=== PATIENT | male | born 1990 | race Two or more races ===

== ENCOUNTER 2024-04-21 20:05 | Emergency (ER) | payer BC ==
[~2024-04-21] VITALS: Ht 177.8 cm; Wt 110.0 kg
[2024-04-21 20:29] VITALS: BP 151/90; PULSE 124; RESP 20; O2SAT 95
--- NOTE | 2024-04-21 21:06 | ED.PDOC ---
History of Present Illness(SKN HPI Comments PATIENT HERE TODAY FOR BLEEDING FROM A WOUND. PATIENT STATES HE HAD SURGERY TODAY TO REPAIR LIGAMENTS IN HIS LEFT ANKLE. STATES HE HAD A LACERATION/SUTURE VAZQUZE TO THE LATERAL SIDE OF THE ANKLE. SAYS HE WENT HOME FROM THE HOSPITAL, THIS HOSPITAL TODAY. SEEN BY PODIATRY. HE HAD DIGITAL BLOCK DONE SO HE DID NOT FEEL MUCH PAIN BUT HAS A DAY WENT ON PAIN STARTED DECREASE AND HE STARTED NOTICING BLEEDING THROUGH THE DRESSING ON HIS ANKLE. PATIENT STATES HE CHANGE THE SANJUANA WRAP AND THE SOCK HE WAS WEARING AND IT CONTINUED TO BLEED SO HE CAME IN TO HAVE THE WOUND CHECKED. Chief Complaint: Wound Check Time Seen by MD: 20:28 History of Present Illness: Nurses Notes Allergies: Coded Allergies: Vancomycin (Verified Allergy, Mild, Itchiness, 04/19/24) Information Source: Patient Mode of Arrival: crutches Severity: Moderate Past Medical History PAST MEDICAL HISTORY: Denies Surgical History: Denies all surgeries Constitutional: denies: chills, diaphoresis, fatigue, fever, malaise, sweats, weakness, others EENTM: denies: blurred vision, double vision, ear bleeding, ear discharge, ear drainage, ear pain, ear ringing, eye pain, eye redness, hearing loss, mouth pain, mouth swelling, nasal discharge, nose bleeding, nose congestion, nose pain, photophobia, tearing, throat pain, throat swelling, voice changes, others Respiratory: denies: cough, hemoptysis, orthopnea, SOB at rest, shortness of breath, SOB with excertion, stridor, wheezing, others Cardiovascular: denies: chest pain, dizzy spells, diaphoresis, Dyspnea on exertion, edema, irregular heart beat, left arm pain, lightheadedness, palpitations, PND, syncope, others Gastrointestinal: denies: abdomen distended, abdominal pain, blood streaked bowels, constipated, diarrhea, dysphagia, difficulty swallowing, hematemesis, melena, nausea, poor appetite, poor fluid intake, rectal bleeding, rectal pain, vomiting, others Genitourinary: denies: burning, dysuria, flank pain, frequency, hematuria, incontinence, penile discharge, penile sore, pain, testicle pain, testicle swelling, urgency, others Neurological: denies: dizziness, fainting, headache, left sided numbness, left sided weakness, numbness, paresthesia, pre-existing deficit, right sided numbness, right sided weakness, seizure, speech problems, tingling, tremors, weakness, others Musculoskeletal: reports: joint pain, muscle pain, muscle stiffness; denies: back pain, gout, joint swelling, neck pain, others Physical Exam General Appearance: No Apparent Distress, Normal HEENT: Normal ENT Inspection, Pharynx Normal, TMs Normal Neck: Full Range of Motion, Non-Tender, Normal, Normal Inspection Respiratory: Chest Non-Tender, Lungs Clear, No Accessory Muscle Use, No Respiratory Distress, Normal Breath Sounds Cardiovascular: No Edema, No JVD, No Murmur, No Gallop, Normal Peripheral Pulses, Regular Rate/Rhythm Breast Exam: Deferred Gastrointestinal: No Organomegaly, Non Tender, No Pulsatile Mass, Normal Bowel Sounds, Soft Genitalia: Deferred Pelvic: Deferred Rectal: Deferred Extremities: No calf tenderness, Normal capillary refill, Normal inspection, Normal range of motion, Non-tender, No pedal edema Musculoskeletal : Apperance: Normal Neurologic: Alert, machine packer II-XII nml as Tested, No Motor Deficits, Normal Affect, Normal Mood, No Sensory Deficits Cerebellar Function: Normal Reflexes: Normal Skin: Dry, Normal Color, Warm, Wounds (SUTURE WOUND ASSESS, HE HAS SUTURE LINE TO THE LEFT LATERAL MALLEOLUS. NO DRAINAGE FROM THE WOUND UPON ASSESSMENT. AREAS TENDER TO PALPATION. SUTURES ALL APPEAR TO BE INTACT, NO DEHISCENCE) Lymphatic: No Adenopathy Was a procedure done? Was a procedure done?: No Differential Diagnosis (INTG) Differential Diagnosis: Other (SURGICAL WOUND COMPLICATIONS. CELLULITIS.) X-Ray, Labs, Meds, VS Vital Signs Date Time Temp Pulse Resp B/P (MAP) Pulse Ox O2 Delivery O2 Flow Rate FiO2 04/21/24 20:29 98.6 124 20 151/90 (110) 95 X-Ray, Labs, Meds, VS Comment IMAGING: X-RAYS AND CT SCANS WERE REVIEWED AND INTERPRETED BY THIS PROVIDER, IMAGING SHOWS NO FRACTURES AND NO PATHOLOGICAL DISEASE. PENDING RADIOLOGY REVIEW. LABORATORY: LABS REVIEWED AND INTERPRETED BY THIS PROVIDER. NO SIGNIFICANT ABNORMALITIES NOTED. PATIENT HAS PRIOR MEDICAL VISITS REVIEWED. MED RECONCILIATION PERFORMED VITAL SIGNS REVIEWED Time of 1ST Reevaluation: 21:05 Reevaluation 1ST: Improved Patient Education/Counseling: Diagnosis, Treatment, Need For Follow Up (MAKE FOLLOW UP WITH CALL WITH PODIATRY TOMORROW MORNING. PATIENT STATES HE WAS PERCOCET AT HOME.) Family Education/Counseling: Diagnosis Departure 1 Departure Time of Disposition: 21:05 Impression: Primary Impression: Abnormal surgical wound Qualified Codes: T81.9XXA - Unspecified complication of procedure, initial encounter Disposition: HOME / SELF CARE / HOMELESS Condition: Fair Discharged With: Self Critical Care Note Critical Care Time?: No Stability Stability form required: No Heart Score Heart Score: Heart Score Response (Comments) Value History N/A 0 EKG N/A 0 Age N/A 0 Risk Factors N/A 0 Troponin N/A 0 Total 0 ANAMIKA MCNAMARAP Apr 21, 2024 21:06
== END 2024-04-21 21:48 | disposition left against medical advice (07) ==
LOC: ER 20:05
DX: S91.012D Laceration without foreign body, left ankle, subsequent encounter (principal); Z88.1 Allergy status to other antibiotic agents; X58.XXXD Exposure to other specified factors, subsequent encounter

== ENCOUNTER → 2024-04-21 | Day surgery (SDC) | payer BC ==
[2024-04-19 11:53] LABS: Urine Bacteria None Seen /hpf (None Seen)
[2024-04-19 12:03] LABS: Urine Blood Negative /uL (Negative); Urine Clarity Clear (Clear); Urine Color Light-Yellow (Yellow); Urine Protein, UAD Negative (Negative); Urine Specific Gravity 1.015 (1.001-1.035); Urine Urobilinogen Normal (Negative); Urine WBC <1 /hpf (0 - 3); Urine pH 7.5 (5.0-9.0)
[2024-04-19 12:10] LABS: Basophils # (auto) 0 10 ^3/uL (0-0.2); Basophils % (auto) 0.2 % (0.0-2.0); Eosinophils # (auto) 0.1 10 ^3/uL (0-0.8); Eosinophils % (auto) 1.8 % (0.0-7.0); Hematocrit 46.1 % (41.0-53.0); Hemoglobin 16.5 g/dL (13.5-17.5); Lymphocytes # (auto) 2.3 10 ^3/uL (0.4-5.4); Lymphocytes % (auto) 35.7 % (10.0-50.0); Mean Corpuscular Hemoglobin 31.3 pg (28.0-32.0); Mean Corpuscular Hgb Conc. 35.8 g/dL (32.0-36.0); Mean Corpuscular Volume 87.5 fL (80.0-100.0); Monocytes # (auto) 0.6 10 ^3/uL (0-1.3); Monocytes % (auto) 9.5 % (0.0-12.0); Neutrophils # (auto) 3.4 10 ^3/uL (1.6-8.6); Neutrophils % (auto) 52.8 % (37.0-80.0); Nucleated Red Blood Cells % 1.4 %; Platelet Count (auto) 206 10^3/uL (140-450); Red Blood Cells 5.27 10^6/uL (4.5-5.90); Red Cell Distribution Width 13.2 % (11.8-14.3); White Blood Cell 6.5 10^3/uL (4.4-10.8)
[2024-04-19 12:23] LABS: INR 1.03 (0.9-1.15); Partial Thromboplastin Time 27.6 SEC (24.5-34.5); Prothrombin Time 10.9 sec (9.3-11.8)
[2024-04-19 12:38] LABS: Alanine Aminotransferase 25 U/L (7-40); Albumin 4.7 g/dL (3.2-4.8); Alkaline Phosphatase 71 U/L (46-116); Anion Gap 4 (5-15); Aspartate Aminotransferase 12 U/L (13-40); BUN/Creatinine Ratio 12.5 (10.0-20.0); Bilirubin, Total 0.7 mg/dL (0.2-1.0); Blood Urea Nitrogen 11 mg/dL (9-23); Calcium 10.3 mg/dL (8.7-10.4); Carbon Dioxide 30 mmol/L (20-31); Chloride 104 mmol/L (98-107); Glucose 87 mg/dL (74-106); Potassium 4.2 mmol/L (3.5-5.1); Sodium 138 mmol/L (136-145); Total Protein 7.5 g/dL (5.7-8.2)
[~2024-04-21] VITALS: Ht 177.8 cm; Wt 111.1 kg
[~2024-04-21] MED LIST: ACETAMINOPHEN IV 1000 MG/100ML (10MG/ML) IV PRN; BACITRACIN TOP OINT 1 UD PKG TOP ONE; BUPIVACAINE HCL 50 ML ONE; DexAMETHasone SOD PHOS 10MG/1ML VIAL INJ ONE; HYDROmorphone HCL 2 MG/ML VL/or syr IV PRN; LIDOCAINE 1% INJ PF 5ML AMP ONE; MEPERIDINE HCL (25 MG/ML) 1ML VIAL IV PRN; ONDANSETRON HCL 4 MG/2 ML VIAL IV ONE; ONDANSETRON HCL 4 MG/2 ML VIAL ONE; PROPOFOL 10 MG/ML 20 ML IV ONE; ROPIVACAINE 0.5% (5MG/ML) 20ML AMPULE IJ ONE; fentaNYL CITRATE 100 MCG/2 ML VL ONE
[2024-04-21] MEDS: ceFAZolin 2 GM/D5W100ml 100 ML IV ONE (12:26)
[2024-04-21 13:43] VITALS: PULSE 84; RESP 16; TEMP 97.5; O2SAT 96
--- NOTE | 2024-04-21 13:43 | DVHOP2 ---
Operative Report - 2 Report Details Date: 04/21/24 Preop Diagnosis: 1. Left ankle instability 2. Left sprain of the ATFL 3. Left subtalar synovitis 4. Left ankle pain Postop Diagnosis: Same as preop Surgeon: Mehdi Stanley MD Anesthesiologist: See anesthesia Anesthesia: General Implant: Internal brace Arthrex FiberTak x2 Consent: The patient was informed of the risks and benefits of the procedure. These include but are not limited to complications of anesthesia, postoperative infection, incomplete relief of symptoms, recurrence of symptoms, damage to blood vessels, nerves and tendons, deep venous thrombosis, pulmonary embolism and possible need for repeat surgery in the future. Complications: None Estimated Blood Loss: Minimal Fluids: See anesthesia Findings: Significant laxity of the talus and calcaneus at the ATFL and CFL Indications for Surgery: Worsening left ankle pain Name of Procedure Performed 1. Left subtalar synovectomy (91656) 2. Left ankle brostrom repair with internal brace ([id number]) Procedure Details Procedure Details: PRE-PROCEDURE INFORMATION: In the pre-op holding area, the extremity to be operated on was clearly marked and the patient verified correct laterality of the marking. The patient was transferred to the OR table and placed in a supine position. A timeout was performed in which identification of the correct patient, procedure, location, and materials was done. The left foot and leg were prepped and draped in normal sterile fashion. The foot and leg were exsanguinated and the thigh tourniquet was inflated to 250 mmHg. DESCRIPTION OF PROCEDURE: Attention was directed to the lateral lateral ankle where a curvilinear longitudinal incision was made just anterior to the distal fibula. This incision was deepened through blunt and sharp dissection to the level of both the fibula and the talus so that both were visualized. Care was ta tod throughout dissection to avoid damage to neurovascular structures. An arthrotomy of the ankle joint was performed revealing normal appearing joint fluid. It was noted that the anterior talofibular ligament was attenuated and needed repair. The talar dome was inspected and noted to be free of osteochondral lesions. Using a rongeur insert sharp instrumentation, a synovectomy was performed of the subtalar joint. There was noted to be significant amount of synovitis in the area. An arthrex internal brace was then drilled and placed in the lateral cortice of the talus. Utilizing a periosteal elevator, the periosteum of the anterior distal fibula was reflected in preparation for the placement of the soft tissue anchors. A soft tissue anchor was then placed proximal and distal to the internal brace. The internal brace was then drilled and placed in the distal aspect of the fibula. The knotless fibertak anchors were then used to recreate the ATFL and CFL ligaments. Prior to the procedure being performed, there was a positive anterior drawer sign. After, this procedure, there was a negative anterior drawer. The capsule was then oversewn with 2-0 Vicryl. The wound was irrigated copiously with normal saline and closed in layers All surgical wounds were irrigated copiously with saline and closed in layers with the aforementioned suture material. A dry sterile dressing was placed on th e surgical extremity. The patient was placed in a cam boot POSTOPERATIVE INFORMATION: The patient tolerated the above noted procedure and anesthesia well and was transferred to the PACU with vital signs stable, and vascular status intact with capillary refill intact to all digits. Postoperative instructions reviewed in detail with the patient with written instructions provided. Patient will return to clinic in approximately 10-14 days for first postoperative visit. Patient has the number of the clinic and was instructed to call prior to that time should any problems, questions, or concerns arise. Condition Good Disposition Home MEHDI STANLEY DPM Apr 21, 2024 13:43
[2024-04-21 14:25] VITALS: BP 149/92; PULSE 64; RESP 17; O2SAT 98
== END | disposition home or self-care (01) ==
LOC: SUR 10:01
PROVIDERS: ATTEND Podiatrist
DX: S93.432A Sprain of tibiofibular ligament of left ankle, initial encounter (principal); M25.372 Other instability, left ankle; M65.872 Other synovitis and tenosynovitis, left ankle and foot; X58.XXXA Exposure to other specified factors, initial encounter; Y93.89 Activity, other specified; Y92.89 Other specified places as the place of occurrence of the external cause; Y99.8 Other external cause status
CPT/HCPCS: 27625; 27695; 36415; 80053; 81001; 85025; 85610; 85730; C1713; J1100; J2405; J2704; J2795; J3010; J3490

== ENCOUNTER 2024-12-15 09:22 | Inpatient (IN) | payer BC ==
[2024-12-13 14:00] LABS: Urine Protein, UAD TRACE (Negative)
[2024-12-13 14:01] LABS: Hematocrit 46.5 % (41.0-53.0); Hemoglobin 16.7 g/dL (13.5-17.5); Mean Corpuscular Hemoglobin 31.3 pg (28.0-32.0); Mean Corpuscular Volume 87.1 fL (80.0-100.0); Nucleated Red Blood Cells % 0.1 %
[2024-12-13 14:14] LABS: INR 1.0 (0.9-1.15); Partial Thromboplastin Time 27.3 SEC (24.5-34.5); Prothrombin Time 10.6 sec (9.3-11.8)
[2024-12-13 15:14] LABS: Alanine Aminotransferase 19 U/L (7-40); Alkaline Phosphatase 63 U/L (46-116); Anion Gap 9 (5-15); BUN/Creatinine Ratio 15.3 (10.0-20.0); Bilirubin, Total 0.6 mg/dL (0.2-1.0); Blood Urea Nitrogen 13 mg/dL (9-23); Calcium 10.0 mg/dL (8.7-10.4); Carbon Dioxide 25 mmol/L (20-31); Glucose 95 mg/dL (74-106); Potassium 4.0 mmol/L (3.5-5.1); Sodium 142 mmol/L (136-145); Total Protein 7.5 g/dL (5.7-8.2)
[2024-12-13 15:20] LABS: Albumin 5.0 g/dL (3.2-4.8); Chloride 108 mmol/L (98-107)
[~2024-12-15] VITALS: Ht 177.8 cm; Wt 108.9 kg
[~2024-12-15 09:22] MED LIST changes: -ACETAMINOPHEN IV 1000 MG/100ML (10MG/ML) IV PRN; -BACITRACIN TOP OINT 1 UD PKG TOP ONE; -BUPIVACAINE HCL 50 ML ONE; -DexAMETHasone SOD PHOS 10MG/1ML VIAL INJ ONE; +HYDR1TAB97 PO; -HYDROmorphone HCL 2 MG/ML VL/or syr IV PRN; -LIDOCAINE 1% INJ PF 5ML AMP ONE; -MEPERIDINE HCL (25 MG/ML) 1ML VIAL IV PRN; -ONDANSETRON HCL 4 MG/2 ML VIAL IV ONE; -ONDANSETRON HCL 4 MG/2 ML VIAL ONE; -PROPOFOL 10 MG/ML 20 ML IV ONE; -ROPIVACAINE 0.5% (5MG/ML) 20ML AMPULE IJ ONE; -fentaNYL CITRATE 100 MCG/2 ML VL ONE
--- NOTE | 2024-12-15 09:53 | DVHOP2 ---
Operative Report - 2 Report Details Date: 12/15/24 Preop Diagnosis: 1. Left foot syndesmosis tear 2. Left foot pes planus 3. Left foot bunion 4. Left david tailors bunion 5. Left foot pain 6. Left foot equinus Postop Diagnosis: Same as preop Surgeon: Mehdi Stanley MD Anesthesiologist: See anesthesia Anesthesia: General Implant: Arthrex tight rope Arthrex medial calcaneal slide plate and screws 2mm Steiman pinn x 2 Consent: The patient was informed of the risks and benefits of the procedure. These include but are not limited to complications of anesthesia, postoperative infection, incomplete relief of symptoms, recurrence of symptoms, damage to blood vessels, nerves and tendons, deep venous thrombosis, pulmonary embolism and possible need for repeat surgery in the future. Complications: None Estimated Blood Loss: Minimal Fluids: See anesthesia Findings: Consistent with the diagnosis Indications for Surgery: Worsening left foot and ankle pain Name of Procedure Performed 1. Left foot bunionectomy (94442) 2. Left foot tailors bunionectomy (86505) 3. Left foot medical calcaneal slide (70940) 4. Left foot gastrocnemius recession (08673) 5. Left foot syndesmosis ORIF (40594) Procedure Details Procedure Details: PRE-PROCEDURE INFORMATION: In the pre-op holding area, the extremity to be operated on was clearly marked and the patient verified correct laterality of the marking. The patient was transferred to the OR table and placed in a supine position. A timeout was performed in which identification of the correct patient, procedure, location, and materials was done. The left foot and leg were prepped and draped in normal sterile fashion. The foot and leg were exsanguinated and the thigh tourniquet was inflated to 250 mmHg. DESCRIPTION OF PROCEDURE: Attention was directed to the left 1st metatarsophalangeal joint where a stab incision was made at the neck of the 1st metatarsal. Care was taken to avoid damage the neurovascular and tendinous structures. Using intraoperative fluoroscopy and an MIS per, an osteotomy was then made at the neck of the 1st metatarsal. The metatarsal head was then shifted into position aligning the sesamoid bones over the fragment. Using a 6 2 K-wire, the wire was then driven down the shaft of the 1st metatarsal to hold the head in place until the osteotomy has healed. Fluoroscopy verified proper placement of hardware as well as correction of previous bunion deformity. Attention was directed to the left lateral fifth metatarsal head where a stab incision was made. This incision was deepened through blunt and sharp dissection. Care was taken to avoid damage to neurovascular structures throughout dissection. The incision was carried to the level of the fifth metatarsal head where on intraoperative fluoroscopy as well as preoperative x- rays, it was noted there was no significantly increased lateral deviation angle of the fifth metatarsal, but the lateral aspect of the fifth metatarsal head appeared to be prominent. This indicated that the patient would benefit from an ostectomy of the metatarsal head without osteotomy. Using an MIS bur, an osteotomy was made across the neck of the metatarsal head. Using a 0.62 K wire, the wire was then placed down the shaft of the 5th metatarsal holding the head in the appropriate position. It was noted on intraoperative fluoroscopy, there was significant reduction of deformity Attention was directed to the medial calf where a 4 cm longitudinal incision was made over the medial gastrocnemius belly of proximally with a 2 cm distal to the musculotendinous junction. Blunt dissection was carried out down to the fascia which was incised in line with the skin. A gastroc aponeurotic recession was performed under direct visualization. Taking care to protect the sural nerve. Adequate dorsiflexion was to confirmed intraoperatively. Attention was then turned to the lateral heel where a curvilinear incision was made over the calcaneus. Dissection was carried down to the bone. Taking care to protect the sural nerve and the peroneal tendons. Using oscillating saw, standard oblique calcaneal osteotomy was performed. The posterior tuberosity was then translated proximally 8 mm to correct the valgus alignment. A low- profile titanium calcaneal plate was then used to hold the osteotomy in the correct position use the accompanying nonlocking and locking screws. Attention was then directed to the left lateral ankle, where a stab incision was made. The incision was carried down to the bone. Using an [employer] tight rope, a drill used to drill from the lateral cortex of the fibula to the medial cortex of the tibia. The tight rope was then placed across and adequate compression was obtained. Similar procedure was then performed proximal to the initial stab incision, an Arthrex tight rope was then placed across. All surgical wounds were irrigated copiously with saline and closed in layers with the aforementioned suture material. A dry sterile dressing was placed on the surgical extremity. The patient was placed in a cam boot POSTOPERATIVE INFORMATION: The patient tolerated the above noted procedure and anesthesia well and was transferred to the PACU with vital signs stable, and vascular status intact with capillary refill intact to all digits. Postoperative instructions reviewed in detail with the patient with written instructions provided. Patient will return to clinic in approximately 10-14 days for first postoperative visit. Patient has the number of the clinic and was instructed to call prior to that time should any problems, questions, or concerns arise. Condition Good Disposition Home MEHDI STANLEY DPM Dec 15, 2024 09:53
[2024-12-15] MEDS ORDERED: MIDAZOLAM HCL 2MG/2ML 2ml VIAL (1mg/ml) ONE (10:31)
[2024-12-15] MEDS ORDERED: LIDOCAINE 2% (LOCAL ANESTH.) PF 5ml SDV ONE (10:31)
[2024-12-15] MEDS ORDERED: fentaNYL CITRATE 100 MCG/2 ML VL ONE (10:31)
[2024-12-15] MEDS ORDERED: ONDANSETRON HCL 4 MG/2 ML VIAL ONE (10:31)
[2024-12-15] MEDS ORDERED: KETOROLAC TROMETH 30 MG/ML 1ML VIAL ONE (10:31)
[2024-12-15] MEDS ORDERED: PROPOFOL 10 MG/ML 20 ML IV ONE (10:31)
[2024-12-15] MEDS ORDERED: GLYCOPYRROLATE 0.2 MG/ML 1ML VIAL ONE (10:32)
[2024-12-15] MEDS: ceFAZolin 2 GM/D5W50ml 50 ML IV ONE (11:05)
[2024-12-15] MEDS: BUPIVACAINE HCL 50 ML ONE (11:05)
[2024-12-15] MEDS ORDERED: HYDROmorphone HCL 2 MG/ML VL/or syr ONE (11:09)
[2024-12-15 12:55] VITALS: O2SAT 97
[2024-12-15] MEDS: ACETAMINOPHEN IV 100 ML IV ONE (13:00)
[2024-12-15] MEDS: ACETAMINOPHEN IV 1000 MG/100ML (10MG/ML) IV ONE (13:00)
[2024-12-15] MEDS ORDERED: KETAMINE 50mg/ML 1ml syringe IV ONE (13:02)
[2024-12-15] MEDS: HYDROmorphone HCL 2 MG/ML VL/or syr IV PRN (13:09)
[2024-12-15] MEDS: HYDROmorphone HCL 2 MG/ML VL/or syr ONE (13:10)
[2024-12-15] MEDS: fentaNYL CITRATE 100 MCG/2 ML VL IV PRN (13:30)
[2024-12-15] MEDS: fentaNYL CITRATE 100 MCG/2 ML VL ONE (13:30)
[2024-12-15] MEDS: ROPIVACAINE 0.5% (5MG/ML) 20ML AMPULE IJ ONE (13:39)
--- NOTE | 2024-12-15 13:52 | DVHNC2 ---
Procedure - Patient has significant breakthrough pain after left achilles surgery. Informed consent for left distal sciatic block obtained. Sterile prep and drape. 22G 4" nerve stimulating needle used. Twitch elicited to 0.8 mAmps.15cc 0.5% ropivacaine incrementally injected with no heme or paresthesia. Patient reports some pain relief. Will follow. LOLY CORTES MD Dec 15, 2024 13:52
[2024-12-15] MEDS ORDERED: LIDOCAINE 1% INJ PF 5ML AMP ONE (14:07)
[2024-12-15] MEDS ORDERED: NITROGLYCERIN 0.4 MG SL TAB SL PRN (15:15)
[2024-12-15 16:31] VITALS: RESP 16
--- NOTE | 2024-12-15 16:39 | DVHHP2 ---
Review of Systems Allergies: Coded Allergies: Vancomycin (Verified Allergy, Mild, Itchiness, 04/19/24) Medications Current Medications Medications Dose Ordered Sig/Michael Route Start Time Stop Time Status Last Admin Dose Admin Oxycodone HCl 10 mg Q4HP PRN PO 12/15/24 13:30 12/15/24 13:35 10 MG Nitroglycerin 0.4 mg Q5MINP PRN SL 12/15/24 15:15 Morphine Sulfate 2 mg Q30M PRN IV 12/15/24 15:15 Exam Vital Signs Vital Signs Date Time Temp Pulse Resp B/P (MAP) Pulse Ox O2 Delivery O2 Flow Rate FiO2 12/15/24 16:10 102 12 125/72 (89) 97 12/15/24 12:55 Mask 7.0 96 12/15/24 12:55 97.4 97.4 Labs/Xrays Labs Test 12/13/24 13:51 Range/Units White Blood Count 6.6 4.4-10.8 10^3/uL Red Blood Count 5.34 4.5-5.90 10^6/uL Hemoglobin 16.7 13.5-17.5 g/dL Hematocrit 46.5 41.0-53.0 % Mean Corpuscular Volume 87.1 80.0-100.0 fL Mean Corpuscular Hemoglobin 31.3 28.0-32.0 pg Mean Corpuscular Hemoglobin Concent 35.9 32.0-36.0 g/dL Red Cell Distribution Width 13.1 11.8-14.3 % Platelet Count 190 140-450 10^3/uL Mean Platelet Volume 7.9 6.9-10.8 fL Neutrophils (%) (Auto) 54.9 37.0-80.0 % Lymphocytes (%) (Auto) 35.1 10.0-50.0 % Monocytes (%) (Auto) 7.4 0.0-12.0 % Eosinophils (%) (Auto) 2.2 0.0-7.0 % Basophils (%) (Auto) 0.4 0.0-2.0 % Neutrophils # (Auto) 3.6 1.6-8.6 10 ^3/uL Lymphocytes # (Auto) 2.3 0.4-5.4 10 ^3/uL Monocytes # (Auto) 0.5 0-1.3 10 ^3/uL Eosinophils # (Auto) 0.1 0-0.8 10 ^3/uL Basophils # (Auto) 0 0-0.2 10 ^3/uL Nucleated Red Blood Cells 0.1 % Prothrombin Time 10.6 9.3-11.8 sec Prothrombin Time INR 1.00 0.9-1.15 Activated Partial Thromboplast Time 27.3 24.5-34.5 SEC Urine Color Yellow Yellow Urine Clarity Clear Clear Urine pH 7.5 5.0-9.0 Urine Specific [place] 1.036 H 1.001-1.035 Urine Protein Trace H Negative Urine Ketones Negative Negative Urine Blood Negative Negative /uL Urine Nitrite Negative Negative Urine Bilirubin Negative Negative Urine Urobilinogen 2 H Negative mg/dL Urine Leukocyte Esterase Negative Negative /uL Urine RBC <1 0 - 3 /hpf Urine Microscopic WBC 0-3 /HPF Urine Squamous Epithelial Cells None seen <5 /hpf Urine Bacteria None seen None Seen /hpf Urine Glucose Normal Normal mg/dL Sodium Level 142 136-145 mmol/L Potassium Level 4.0 3.5-5.1 mmol/L Chloride Level 108 H 98-107 mmol/L Carbon Dioxide Level 25 20-31 mmol/L Anion Gap 9 5-15 Blood Urea Nitrogen 13 9-23 mg/dL Creatinine 0.85 0.700-1.30 mg/dL Glomerular Filtration Rate Calc 117 >90 mL/min BUN/Creatinine Ratio 15.3 10.0-20.0 Serum Glucose 95 74-106 mg/dL Calcium Level 10.0 8.7-10.4 mg/dL Total Bilirubin 0.6 0.2-1.0 mg/dL Aspartate Amino Transferase (AST) 15 13-40 U/L Alanine Aminotransferase (ALT) 19 7-40 U/L Alkaline Phosphatase 63 46-116 U/L Total Protein 7.5 5.7-8.2 g/dL Albumin 5.0 H 3.2-4.8 g/dL Assessment/Plan Assessment/Plan SEE DICTATED NOTE Plan discussed with: Patient My Orders Orders - KRIS FAN MD Procedure Category Date Status Time Admit ADMIT 12/15/24 Transmitted 15:01 Oxygen By Nasal RT 12/15/24 Transmitted Cannula 15:01 Nitroglycerin PHA 12/15/24 In Process Sublingual (Ntrostat 15:15 Morphine Sulfate PHA 12/15/24 In Process Injection 15:15 Stat Ekg For Chest MAGGIE 12/15/24 In Process Pain 15:01 Notify Md Of Changes [facility] 12/15/24 In Process From Base 15:01 Emergency Dysrhythmia [facility] 12/15/24 In Process Protocol 15:01 Rhythm Strips Once [facility] 12/15/24 In Process Every Shift 15:01 Date of Service: Dec 15, 2024 Billing Provider: KRIS FAN MD Common Visit Codes: [id number] INP/OBS CARE (HIGH) KRIS FAN MD Dec 15, 2024 16:39
[2024-12-15] MEDS ORDERED: ACETAMINOPHEN 325 MG TAB PO PRN (16:45)
[2024-12-15] MEDS ORDERED: ONDANSETRON HCL 4 MG/2 ML VIAL IV PRN (16:45)
[2024-12-15 17:00] VITALS: BP 128/78; PULSE 102; RESP 18; TEMP 98.2; O2SAT 96
[2024-12-15] MEDS: MORPHINE SULFATE INJ 2 MG/ml SYRG IV PRN ×2 (17:25→20:30)
--- NOTE | 2024-12-15 17:26 | DVHHP ---
HISTORY OF PRESENT ILLNESS: The patient is a 34-year-old gentleman who underwent surgery on the left foot for left pes planus as well as bunion surgery. The patient at this time complains of pain at the site. No chest pain, no shortness of breath, no nausea or vomiting. REVIEW OF SYSTEMS: Review of rest of systems otherwise currently negative. PAST MEDICAL HISTORY: Significant for surgery when he was younger for Arnold-Chiari malformation. MEDICATIONS: He takes no medicine on a regular basis. ALLERGIES: No known drug allergies. SOCIAL HISTORY: Denies smoking or alcohol. He lives at home with his . FAMILY HISTORY: Negative. PHYSICAL EXAMINATION: GENERAL: The patient is awake and alert. VITAL SIGNS: Temperature of 97.4, pulse 102 per minute, blood pressure 125/72. SHEENT: Unremarkable. NECK: There is no JVD. No pedal edema. LUNGS: Equal bilaterally. No added sounds. CARDIOVASCULAR SYSTEM: S1 and S2 is regular. No murmurs. ABDOMEN: Soft. There is no organomegaly. NEUROLOGIC: Nonfocal. MUSCULOSKELETAL: Left foot is currently in a dressing. ASSESSMENT AND PLAN: * History of Arnold-Chiari malformation. * Obesity. * Status post left foot surgery for which he will be placed on pain medications and followed up by Dr. Travis. MD ERICK Gallagher/LILLIE TID: [id number] RECEIPT: [id number]
[2024-12-15 21:00] VITALS: BP 135/90; PULSE 101; RESP 17; TEMP 99.4; O2SAT 95
[2024-12-16] VITALS (8 sets, daily range): BP systolic 109–134; BP diastolic 61–89; PULSE 70–104; RESP 17–19; TEMP 97.5–98.8; O2SAT 94–98
[2024-12-16 05:19] LABS: Hematocrit 42.7 % (41.0-53.0); Hemoglobin 14.8 g/dL (13.5-17.5); Mean Corpuscular Hemoglobin 30.6 pg (28.0-32.0); Mean Corpuscular Volume 88.2 fL (80.0-100.0); Nucleated Red Blood Cells % 0.0 %
[2024-12-16 05:32] LABS: Alanine Aminotransferase 14 U/L (7-40); Albumin 4.2 g/dL (3.2-4.8); Alkaline Phosphatase 53 U/L (46-116); Anion Gap 8 (5-15); BUN/Creatinine Ratio 14.1 (10.0-20.0); Blood Urea Nitrogen 10 mg/dL (9-23); Calcium 9.3 mg/dL (8.7-10.4); Carbon Dioxide 25 mmol/L (20-31); Potassium 4.0 mmol/L (3.5-5.1); Sodium 141 mmol/L (136-145); Total Protein 6.2 g/dL (5.7-8.2)
[2024-12-16 05:33] LABS: Bilirubin, Total 0.7 mg/dL (0.2-1.0); Chloride 108 mmol/L (98-107); Glucose 130 mg/dL (74-106)
--- NOTE | 2024-12-16 10:33 | DVHDS2 ---
Discharge Summary Date of Admission Dec 15, 2024 at 15:01 Date of Discharge: Dec 16, 2024 Labs/Diagnostic Data: Laboratory Results Test 12/16/24 04:37 12/13/24 13:51 White Blood Count 11.2 10^3/uL (4.4-10.8) Red Blood Count 4.84 10^6/uL (4.5-5.90) Hemoglobin 14.8 g/dL (13.5-17.5) Hematocrit 42.7 % (41.0-53.0) Mean Corpuscular Volume 88.2 fL (80.0-100.0) Mean Corpuscular Hemoglobin 30.6 pg (28.0-32.0) Mean Corpuscular Hemoglobin Concent 34.7 g/dL (32.0-36.0) Red Cell Distribution Width 13.2 % (11.8-14.3) Platelet Count 179 10^3/uL (140-450) Mean Platelet Volume 8.4 fL (6.9-10.8) Neutrophils (%) (Auto) 86.2 % (37.0-80.0) Lymphocytes (%) (Auto) 8.6 % (10.0-50.0) Monocytes (%) (Auto) 5.2 % (0.0-12.0) Eosinophils (%) (Auto) 0.0 % (0.0-7.0) Basophils (%) (Auto) 0.0 % (0.0-2.0) Neutrophils # (Auto) 9.6 10 ^3/uL (1.6-8.6) Lymphocytes # (Auto) 1.0 10 ^3/uL (0.4-5.4) Monocytes # (Auto) 0.6 10 ^3/uL (0-1.3) Eosinophils # (Auto) 0 10 ^3/uL (0-0.8) Basophils # (Auto) 0 10 ^3/uL (0-0.2) Nucleated Red Blood Cells 0.0 % Sodium Level 141 mmol/L (136-145) Potassium Level 4.0 mmol/L (3.5-5.1) Chloride Level 108 mmol/L (98-107) Carbon Dioxide Level 25 mmol/L (20-31) Anion Gap 8 (5-15) Blood Urea Nitrogen 10 mg/dL (9-23) Creatinine 0.71 mg/dL (0.700-1.30) Glomerular Filtration Rate Calc 123 mL/min (>90) BUN/Creatinine Ratio 14.1 (10.0-20.0) Serum Glucose 130 mg/dL (74-106) Calcium Level 9.3 mg/dL (8.7-10.4) Total Bilirubin 0.7 mg/dL (0.2-1.0) Aspartate Amino Transferase (AST) 17 U/L (13-40) Alanine Aminotransferase (ALT) 14 U/L (7-40) Alkaline Phosphatase 53 U/L (46-116) Total Protein 6.2 g/dL (5.7-8.2) Albumin 4.2 g/dL (3.2-4.8) Prothrombin Time 10.6 sec (9.3-11.8) Prothrombin Time INR 1.00 (0.9-1.15) Activated Partial Thromboplast Time 27.3 SEC (24.5-34.5) Urine Color Yellow (Yellow) Urine Clarity Clear (Clear) Urine pH 7.5 (5.0-9.0) Urine Specific [place] 1.036 (1.001-1.035) Urine Protein Trace (Negative) Urine Ketones Negative (Negative) Urine Blood Negative /uL (Negative) Urine Nitrite Negative (Negative) Urine Bilirubin Negative (Negative) Urine Urobilinogen 2 mg/dL (Negative) Urine Leukocyte Esterase Negative /uL (Negative) Urine RBC <1 /hpf (0 - 3) Urine Microscopic WBC /HPF (0-3) Urine Squamous Epithelial Cells None seen /hpf (<5) Urine Bacteria None seen /hpf (None Seen) Urine Glucose Normal mg/dL (Normal) Other Laboratory Tests 12/16/24 04:37 Brief Hx & Hospital Course: see dictated note Condition at Discharge: Good Final Diagnosis/Problems List Left foot syndesmosis tear, bunion, pes planus Discharge Disposition: Home Discharge Instruct/Medications Diet: Regular Activity: Light activity Activity comment: NWB left lower extremity Follow Up/Referral: 2 weeks Medications: Percocet 5mg Doxycycline 100mg Scheduled Hydrocodone-Acetaminophen (Hydrocodone/Acetaminophen 5-325 mg), 1 TAB PO PRN, (Reported) Discharge Statement: "Patient was advised to return to the ER or call 911 if any headaches, dizziness, shortness of breath, chest pain, abdominal pain, bleeding, fevers, or worsening of medical condition. Patient was counseled about treatment plan, medications, possible side effects, patientverbalized understanding. All questions were answered to the best of my ability. This discharge took greater then 30 minutes in planning, reviewing documentation, counseling the patient, and discussing with other team members." ASSESSMENT ASSESSMENT Assessment Left foot syndesmosis tear, bunion, pes planus Date of Service: Dec 16, 2024 Billing Provider: KRIS FAN MD Common Visit Codes: [id number] DISCH DAY >30min KRIS FAN MD Dec 16, 2024 10:33
--- NOTE | 2024-12-16 10:40 | DVHDS ---
DATE OF DISCHARGE: 12/16/2024 HISTORY OF PRESENT ILLNESS: The patient is a 34-year-old gentleman who was admitted after he underwent surgery on the left foot for pain control. The patient has history of surgery for Arnold-Chiari malformation. HOSPITAL COURSE: The patient did well postoperatively. The patient has now been cleared for discharge. He will resume his home medications and follow up with Dr. Travis in the next 2 weeks. FINAL DIAGNOSES: * History of Arnold-Chiari malformation, with surgery. * Obesity. * Status post left foot surgery. Time spent in discharge planning, review of plan with the patient and cardiology consultant was 37 minutes. MD ERICK Gallagher/NANETTE TID: [id number] RECEIPT: [id number]
== END 2024-12-16 16:15 | disposition home or self-care (01) | DRG 494 ==
LOC: SUR 09:22 → OVERFLOW 15:01 → CENTRAL 16:38
PROVIDERS: ADMIT Internal Medicine; ATTEND Internal Medicine
PROC: 0L8P0ZZ Division of Left Lower Leg Tendon, Open Approach (ICD-10-PCS; 2024-12-15)
PROC: 3E0T3BZ Introduction of Anesthetic Agent into Peripheral Nerves and Plexi, Percutaneous Approach (ICD-10-PCS; 2024-12-15)
PROC: 0SSG04Z Reposition Left Ankle Joint with Internal Fixation Device, Open Approach (ICD-10-PCS; principal; 2024-12-15 10:58)
PROC: 0QSP04Z Reposition Left Metatarsal with Internal Fixation Device, Open Approach (ICD-10-PCS; 2024-12-15 10:58)
DX: M21.622 Bunionette of left foot (principal); E66.9 Obesity, unspecified; M21.42 Flat foot [pes planus] (acquired), left foot; Q07.00 Arnold-Chiari syndrome without spina bifida or hydrocephalus; S93.432A Sprain of tibiofibular ligament of left ankle, initial encounter; Z88.1 Allergy status to other antibiotic agents; Z79.899 Other long term (current) drug therapy
CPT/HCPCS: 36415; 80053; 81001; 85025; 85610; 85730; G0378; J0131; J0169; J1100; J1885; J2003; J2250; J2405; J2704; J3490

== ENCOUNTER 2025-05-02 11:46 | Day surgery (SDC) | payer BC ==
[2025-04-26 11:57] LABS: Hematocrit 47.3 % (41.0-53.0); Hemoglobin 16.3 g/dL (13.5-17.5); Mean Corpuscular Hemoglobin 30.1 pg (28.0-32.0); Mean Corpuscular Volume 87.4 fL (80.0-100.0); Nucleated Red Blood Cells % 0.1 %
[2025-04-26 11:58] LABS: Urine Protein, UAD TRACE (Negative)
[2025-04-26 12:04] LABS: INR 1.06 (0.9-1.15); Partial Thromboplastin Time 27.8 SEC (24.5-34.5); Prothrombin Time 11.2 sec (9.3-11.8)
[2025-04-26 12:40] LABS: Alanine Aminotransferase 31 U/L (7-40); Albumin 4.6 g/dL (3.2-4.8); Alkaline Phosphatase 85 U/L (46-116); Anion Gap 9 (5-15); BUN/Creatinine Ratio 11.5 (10.0-20.0); Bilirubin, Total 0.8 mg/dL (0.2-1.0); Blood Urea Nitrogen 10 mg/dL (9-23); Calcium 9.7 mg/dL (8.7-10.4); Carbon Dioxide 29 mmol/L (20-31); Chloride 104 mmol/L (98-107); Glucose 99 mg/dL (74-106); Potassium 4.2 mmol/L (3.5-5.1); Sodium 142 mmol/L (136-145); Total Protein 7.4 g/dL (5.7-8.2)
[~2025-05-02] VITALS: Ht 177.8 cm; Wt 104.3 kg
[2025-05-02] MEDS ORDERED: fentaNYL CITRATE 100 MCG/2 ML VL ONE (13:29)
[2025-05-02] MEDS ORDERED: METOCLOPRAMIDE HCL 5MG/ml INJ 2ml VIAL ONE (13:29)
[2025-05-02] MEDS ORDERED: ONDANSETRON HCL 4 MG/2 ML VIAL ONE (13:29)
[2025-05-02] MEDS ORDERED: MIDAZOLAM HCL 2MG/2ML 2ml VIAL (1mg/ml) ONE (13:29)
[2025-05-02] MEDS ORDERED: LIDOCAINE 2% (LOCAL ANESTH.) PF 5ml SDV ONE (13:29)
[2025-05-02] MEDS ORDERED: ONDANSETRON HCL 4 MG/2 ML VIAL IV PRN (13:30)
[2025-05-02] MEDS ORDERED: PROPOFOL 10 MG/ML 20 ML IV ONE (13:30)
[2025-05-02] MEDS ORDERED: METOCLOPRAMIDE HCL 5MG/ml INJ 2ml VIAL IV PRN (13:30)
[2025-05-02] MEDS: ceFAZolin 2 GM/D5W50ml 50 ML IV ONE (13:30)
[2025-05-02] MEDS ORDERED: KETOROLAC TROMETH 30 MG/ML 1ML VIAL IV ONE (13:30)
[2025-05-02] MEDS: LIDOCAINE 1% HCL (LOCAL ANESTH.) INJ 20ML MDV ONE (13:37)
[2025-05-02] MEDS ORDERED: KETOROLAC TROMETH 30 MG/ML 1ML VIAL ONE (13:45)
[2025-05-02 13:56] VITALS: PULSE 65; RESP 12; TEMP 97.9; O2SAT 98
--- NOTE | 2025-05-02 13:58 | DVHOP2 ---
Operative Report - 2 Report Details Date: 05/02/25 Preop Diagnosis: 1. Right foot bunion 2. Right foot tailors bunion 3. Right foot metatarsalgia 4. Right foot pain Postop Diagnosis: Same as preop Surgeon: Mehdi Stanley MD Anesthesiologist: See anesthesia Anesthesia: General Implant: 2 x 0.6 2k wires Consent: The patient was informed of the risks and benefits of the procedure. These include but are not limited to complications of anesthesia, postoperative infection, incomplete relief of symptoms, recurrence of symptoms, damage to blood vessels, nerves and tendons, deep venous thrombosis, pulmonary embolism and possible need for repeat surgery in the future. Complications: None Estimated Blood Loss: Minimal Fluids: See anesthesia Findings: Consistent with diagnosis Indications for Surgery: Right foot pain Name of Procedure Performed 1. Right foot bunionectomy (14084) 2. Right foot tailors bunionectomy (52454) 3. Right foot 4th patti osteotomy (95195) Procedure Details Procedure Details: PRE-PROCEDURE INFORMATION: In the pre-op holding area, the extremity to be operated on was clearly marked and the patient verified correct laterality of the marking. The patient was transferred to the OR table and placed in a supine position. A timeout was performed in which identification of the correct patient, procedure, location, and materials was done. The right foot and leg were prepped and draped in normal sterile fashion. DESCRIPTION OF PROCEDURE: Attention was directed to the right 1st metatarsophalangeal joint where a stab incision was made at the neck of the 1st metatarsal. Care was taken to avoid damage the neurovascular and tendinous structures. Using an MIS per, an osteotomy was then made at the neck of the 1st metatarsal. The metatarsal head was then shifted into position aligning the sesamoid bones over the fragment. Using a 6 2 K-wire, the wire was then driven down the shaft of the 1st metatarsal to hold the head in place until the osteotomy has healed. Attention was directed to the right lateral fifth metatarsal head where a stab incision was made. This incision was deepened through blunt and sharp dissection. Care was taken to avoid damage to neurovascular structures throughout dissection. The incision was carried to the level of the fifth metatarsal head where, it was noted there was no significantly increased lateral deviation angle of the fifth metatarsal, but the lateral aspect of the fifth metatarsal head appeared to be prominent. This indicated that the patient would benefit from an ostectomy of the metatarsal head without osteotomy. Using an MIS bur, an osteotomy was made across the neck of the metatarsal head. Using a 0.62 K wire, the wire was then placed down the shaft of the 5th metatarsal holding the head in the appropriate position. Attention was directed to the right for metatarsal head where a stab incision was made. The incision was deepened through blunt and sharp dissection. Care was taken to avoid damage to neurovascular structures throughout dissection. Incision was carried to the level of the 4th metatarsal head it was noted there was significant plantar flexion of the metatarsal head. Using an MIS bur, the an osteotomy was performed across the neck of the metatarsal head. The metatarsal head was then able to float. All surgical wounds were irrigated copiously with saline and closed in layers with the aforementioned suture material. A dry sterile dressing was placed on the surgical extremity. The patient was placed in a postop shoe POSTOPERATIVE INFORMATION: The patient tolerated the above noted procedure and anesthesia well and was transferred to the PACU with vital signs stable, and vascular status intact with capillary refill intact to all digits. Postoperative instructions reviewed in detail with the patient with written instructions provided. Patient will return to clinic in approximately 10-14 days for first postoperative visit. Patient has the number of the clinic and was instructed to call prior to that time should any problems, questions, or concerns arise. Condition Good Disposition Home Visit Coding Podiatry Date of Service if different f: May 02, 2025 Billing Provider: MEHDI STANLEY DPM Podiatry Common Visit Codes: PROCEDURE ONLY MEHDI STANLEY DPM May 02, 2025 13:58
[2025-05-02 14:15] VITALS: PULSE 61; RESP 12; O2SAT 99
[2025-05-02] MEDS: HYDROmorphone HCL 2 MG/ML VL/or syr IV PRN (14:19)
[2025-05-02] MEDS: ACETAMINOPHEN IV 1000 MG/100ML (10MG/ML) IV ONE (14:46)
[2025-05-02 15:11] VITALS: BP 146/95; PULSE 60; RESP 12; O2SAT 99
== END 2025-05-02 15:26 | disposition home or self-care (01) ==
LOC: SUR 11:46
PROVIDERS: ATTEND Podiatrist
DX: M21.611 Bunion of right foot (principal); M21.621 Bunionette of right foot; M77.41 Metatarsalgia, right foot; M21.42 Flat foot [pes planus] (acquired), left foot; M20.11 Hallux valgus (acquired), right foot; M67.02 Short Achilles tendon (acquired), left ankle; M72.2 Plantar fascial fibromatosis; G89.29 Other chronic pain; Z79.899 Other long term (current) drug therapy
CPT/HCPCS: 28306; 28308; 36415; 80053; 81001; 85025; 85610; 85730; C1713; J0690; J1171; J1885; J2003; J2250; J2405; J2704; J2765; J3010; J0131